=== PATIENT | female | born 1960 | race Caucasian/White ===

== ENCOUNTER 2018-12-28 13:07 | Outpatient (CLI) | payer BC ==
[2018-12-28 14:11] LABS: BASOPHILS # (AUTO) 0.03 x10^3/uL (0-0.1); BASOPHILS % (AUTO) 0 % (0-1); EOSINOPHILS # (AUTO) 0.18 x10^3/uL (0-0.4); EOSINOPHILS % (AUTO) 2 % (1-7); LYMPHOCYTES # (AUTO) 2.08 x10^3/uL (1-3.4); LYMPHOCYTES % (AUTO) 26 % (22-44); MD NO; MEAN CORPUSCULAR HEMOGLOBIN 31.1 pg (27.0-34.8); MEAN CORPUSCULAR HGB CONC 33.3 g/dL (32.4-35.8); MEAN CORPUSCULAR VOLUME 93.3 fL (80-100); MEAN PLATELET VOLUME 7.4 fL (7.4-10.4); MONOCYTES # (AUTO) 0.61 x10^3/uL (0.2-0.8); MONOCYTES % (AUTO) 8 % (2-9); NEUTROPHILS # (AUTO) 5.22 x10^3/uL (1.8-6.8); NEUTROPHILS % (AUTO) 64 % (42-75); PLATELET COUNT 315 x10^3/uL (130-400); RED BLOOD COUNT 4.73 x10^6/uL (3.82-5.3)
[2018-12-28 14:22] LABS: ALANINE AMINOTRANSFERASE 47 U/L (12-78); ALBUMIN 4.1 g/dL (3.4-5.0); ANION GAP 6 mmol/L (5-15); CALCIUM 9.1 mg/dL (8.5-10.1); CHLORIDE 105 mmol/L (98-107); CREATININE 0.81 mg/dL (0.55-1.02)
[2018-12-28 14:24] LABS: ALKALINE PHOSPHATASE 103 U/L (45-117); BILIRUBIN,TOTAL 0.5 mg/dL (0.2-1.0); TOTAL PROTEIN 7.2 g/dL (6.4-8.2)
[2018-12-28] MEDS ORDERED: LEVO75TA5 PO (14:28)
[2018-12-28] MEDS ORDERED: BUPR300T49 PO (14:28)
[2018-12-28] MEDS ORDERED: FERR324T5 PO (14:28)
[2018-12-28] MEDS ORDERED: HYDR25TA6 PO (14:28)
[2018-12-28] MEDS ORDERED: ROSU5TAB PO (14:28)
[2018-12-28] MEDS ORDERED: CHOL500015 PO (14:28)
[2018-12-28] MEDS ORDERED: LOSA50TA14 PO (14:28)
[2018-12-28] MEDS ORDERED: PRAM1TAB5 PO (14:28)
== END 2018-12-28 23:59 | disposition home or self-care (01) ==
LOC: STAR 13:07
PROVIDERS: ATTEND Obstetrics & Gynecology Gynecology
DX: Z01.810 Encounter for preprocedural cardiovascular examination (principal); R94.31 Abnormal electrocardiogram [ECG] [EKG]
CPT/HCPCS: 36415; 71046; 80053; 85025; 93005